=== PATIENT | male | born 1975 | race Two or more races ===

== ENCOUNTER 2021-01-24 01:03 | Emergency (ER) | payer SELFPAY ==
[~2021-01-24] VITALS: Ht 180.3 cm; Wt 117.0 kg
[2021-01-24 01:06] VITALS: BP 132/87
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
[2021-01-24] MEDS ORDERED: HYDROcodone/APAP 5/325 TABLET PO PRN (01:30)
[2021-01-24] MEDS ORDERED: HYDROcodone/APAP 5/325 TABLET ONE (01:38)
[2021-01-24] MEDS ORDERED: BUPIVACAINE 0.25% ONE (02:15)
[2021-01-24] MEDS ORDERED: BUPIVACAINE 0.25% INFIL ONE (02:30)
== END 2021-01-24 05:23 | disposition home or self-care (01) ==
LOC: ED 04:45
DX: S62.336A Displaced fracture of neck of fifth metacarpal bone, right hand, initial encounter for closed fracture (principal); X58.XXXA Exposure to other specified factors, initial encounter; Y93.89 Activity, other specified; Y92.410 Unspecified street and highway as the place of occurrence of the external cause; Y99.8 Other external cause status
CPT/HCPCS: 26605; 99284